=== PATIENT | female | born 1945 | race Caucasian/White ===

== ENCOUNTER 2016-12-24 14:30 | Emergency (ER) | payer MEDICARE, OTHER, MEDICAID ==
[~2016-12-24] VITALS: Ht 167.6 cm; Wt 90.7 kg
[~2016-12-24 14:30] MED LIST: ASPI81CH43 PO; ATOR10TA PO; BEN10T PO; LEVO500T3 PO; MET25T PO; NOR5T PO; PANT40TA2 PO
[2016-12-24 14:54] VITALS: BP 169/73
== END 2016-12-24 16:23 | disposition home or self-care (01) ==
LOC: ER 14:30
DX: G89.18 Other acute postprocedural pain (principal); Z87.81 Personal history of (healed) traumatic fracture